=== PATIENT | male | born 1980 | race Asian ===

== ENCOUNTER 2016-03-04 21:00 | Emergency (ER) | payer BC ==
[2016-03-04 21:23] VITALS: BP 118/74; PULSE 76; TEMP 98.4; BMI 25.0
--- NOTE | 2016-03-04 22:42 | PDOC ---
History of Present Illness - General Chief Complaint: Injury Stated Complaint: LEFT HAND PUNCTURE WOUND, W/ OYSTER KNIFE Time Seen by Provider: 03/04/16 21:08 - History of Present Illness Initial Comments: This otherwise healthy 35-year-old man presents with laceration of the left palm. 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 Patient had copious bleeding at the scene which he controlled with direct pressure. He denies weakness/numbness/paresthesias of the distal palm or fingers. No history of poor wound healing or resistant organism colonization. No other injury sustained. Patient thinks he is up-to-date on his tetanus immunization and will follow-up with his general doctor to confirm this. Past History - Past Medical History Allergies/Adverse Reactions: Allergies Allergy/AdvReac Type Severity Reaction Status Date / Time No Known Allergies Allergy Unverified 03/04/16 21:04 Home Medications: Ambulatory Orders Amox-Tr/K Cl [Augmentin - 875Mg Tablet] 1 tab PO BID #8 tablet 03/04/16 Other medical history: DENIES - Psycho/Social/Smoking Cessation Hx Anxiety: No Suicidal Ideation: No Smoking History: Never smoked Hx Alcohol Use: Yes (occasional) Review of Systems - Review of Systems Able to Perform ROS?: Yes Comments:: 12 point review of systems is negative except for what is noted in the history of present illness *Physical Exam - Vital Signs Last Vital Signs Temp Pulse Resp BP Pulse Ox 98.4 F 76 18 118/74 98 03/04/16 21:00 03/04/16 21:00 03/04/16 21:00 03/04/16 21:00 03/04/16 21:00 - Physical Exam Comments: Adult male, alert and oriented 3, in no acute distress Vital signs as noted HEAD: No contusions, abrasions or lacerations of the scalp; no facial ecchymosis , deformities or tenderness EYES: Pupils equal, round and reactive to light, extraocular movements intact, sclera anicteric, conjunctiva clear PHARYNX: No erythema, exudate or edema; mucous membranes moist NECK: Supple, nontender, no masses or bruits LUNGS: Clear to auscultation bilaterally CARDIAC: S1, S2 normal; no extra sounds, rubs or murmurs heard ABDOMEN:Normoactive bowel sounds, nontender, no masses, no organomegaly EXTREMITIES: Left hand1 cm, full-thickness, nonbleeding linear laceration of the mid palm Distal palm and fingers are warm and dry with excellent capillary refill Flexion/extension motor functioning intact in fingers; sensory (light touch) intact distally Remainder of the extremity exam is normal NEUROLOGICAL: Cranial nerves II through XII grossly intact. Normal speech, normal gait.moving all 4 extremities equally, Sensation intact in all extremities. PSYCH: Normal mood, normal affect. SKIN: Warm, Dry, normal turgor, no rashes or lesions noted. Procedures - Laceration/Wound Repair Left Plantar Hand Wound Length: to 2.5 cm Wound Explored: clean Wound's Depth, Shape: linear Irrigated w/ Saline: Yes Betadine Prep: No (hibiclens/ethanol) Anesthesia: 1% Lidocaine Amount of Anesthetic (ccs): 1 Wound Repaired With: Sutures Suture Size/Type: 4:0 Number of Sutures: 2 Layer Closure: No Progress Note - Progress Note Progress Note: Small left palmar laceration repaired as noted above. Patient tolerated procedure well. Bacitracin/dry sterile dressing applied to the wound. The patient will receive Augmentin 875/125, one tablet here followed by 3 day course of twice a day dosing. This is because patient was cleaning shellfish when laceration/puncture wound occurred. Although wound was irrigated, risk of infection in palm close to flexor tendons warrants prophylactic antibiotic administration. *DC/Admit/Observation/Transfer Diagnosis at time of Disposition: Laceration of left hand Qualifiers: Encounter type: initial encounter Qualified Code(s): S61.412A - Laceration without foreign body of left hand, initial encounter - Discharge Dispostion Disposition: HOME Condition at time of disposition: Stable - Prescriptions Prescriptions: Amox-Tr/K Cl [Augmentin - 875Mg Tablet] 1 tab PO BID #8 tablet - Patient Instructions Printed Discharge Instructions: How to Care for a Laceration After Repair Additional Instructions: Keep wound as dry as possible with dressing intact for 2 days No immersion until sutures removed Return to ER or see your doctor if area is red/swollen/painful Augmentin 875/125 twice a day for 4 more days Have sutures removed on March 11
[2016-03-04] MEDS ORDERED: AMOX TR/POT CLAV 875MG/125MG TABLETS (FP) PO ONE (22:56)
[2016-03-04] MEDS ORDERED: AMOX TR/POT CLAV 875MG/125MG TABLETS (FP) ONE (23:17)
== END 2016-03-04 23:21 | disposition home or self-care (01) ==
LOC: FER 21:00
PROC: 0HQGXZZ Repair Left Hand Skin, External Approach (ICD-10-PCS; principal; 2016-03-04)
DX: S61.412A Laceration without foreign body of left hand, initial encounter (principal); W26.0XXA Contact with knife, initial encounter; Y93.G1 Activity, food preparation and clean up; Y92.511 Restaurant or cafe as the place of occurrence of the external cause; Y99.0 Civilian activity done for income or pay
CPT/HCPCS: 99282-25